=== PATIENT | male | born 1955 | race Caucasian/White ===

== ENCOUNTER 2025-08-11 21:33 | Emergency (ER) | payer MEDICARE ==
[2025-08-11 22:27] LABS: BASOPHILS ABSOLUTE AUTO 0.05 K/uL (0.00-0.10); BASOPHILS PERCENT AUTO 0.5 % (0.1-1.3); EOSINOPHILS ABSOLUTE AUTO 0.15 K/uL (0.00-0.40); EOSINOPHILS PERCENT AUTO 1.4 % (0.0-5.4); IMMATURE GRAN ABSOLUTE AUTO 0.04 K/uL (0.00-0.23); IMMATURE GRAN PERCENT AUTO 0.4 % (0.0-0.7); LYMPHOCYTES ABSOLUTE AUTO 2.47 K/uL (0.8-3.3); LYMPHOCYTES PERCENT AUTO 23.4 % (11.4-47.7); MONOCYTES ABSOLUTE AUTO 0.77 K/uL (0.20-0.90); MONOCYTES PERCENT AUTO 7.3 % (3.3-12.6); NEUTROPHILS ABSOLUTE AUTO 7.06 K/uL (1.0-7.6); NEUTROPHILS PERCENT AUTO 67.0 % (40.0-78.1); PLATELET COUNT,PLT 199 K/uL (130-375); RED BLOOD CELL COUNT 4.08 M/uL (4.14-5.76); WHITE BLOOD CELL COUNT,WBC 10.5 K/uL (3.2-11.0)
[2025-08-11 22:44] LABS: INR 1.0
[2025-08-11 22:48] LABS: A/G RATIO 1.0 (1.2-2.2); ALANINE AMINOTRANSFERASE,ALT 27 U/L (12-78); ASPARTATE AMNIOTRANSFERASE,AST 42 U/L (15-37); BILIRUBIN TOTAL 0.5 mg/dL (0.2-1.0); BLOOD UREA NITROGEN,BUN 18 mg/dL (7-18); CARBON DIOXIDE,CO2 28 mmol/L (21-32); CHLORIDE,CL 107 mmol/L (100-108); CREATININE 1.1 mg/dL (0.8-1.3); EST CRCL DRUG DOSING (CG) 62.68 mL/min; ESTIMATED GFR 71 mL/min (>60); GLUCOSE RANDOM 102 mg/dL (74-106); POTASSIUM,K 4.2 mmol/L (3.6-5.2); PROTEIN TOTAL,TP 7.0 g/dL (6.4-8.2); SODIUM,NA 142 mmol/L (140-148)
[2025-08-12 00:11] LABS: BASOPHILS ABSOLUTE AUTO 0.04 K/uL (0.00-0.10); BASOPHILS PERCENT AUTO 0.4 % (0.1-1.3); EOSINOPHILS ABSOLUTE AUTO 0.17 K/uL (0.00-0.40); EOSINOPHILS PERCENT AUTO 1.7 % (0.0-5.4); IMMATURE GRAN ABSOLUTE AUTO 0.04 K/uL (0.00-0.23); IMMATURE GRAN PERCENT AUTO 0.4 % (0.0-0.7); LYMPHOCYTES ABSOLUTE AUTO 2.67 K/uL (0.8-3.3); LYMPHOCYTES PERCENT AUTO 26.9 % (11.4-47.7); MONOCYTES ABSOLUTE AUTO 0.76 K/uL (0.20-0.90); MONOCYTES PERCENT AUTO 7.7 % (3.3-12.6); NEUTROPHILS ABSOLUTE AUTO 6.24 K/uL (1.0-7.6); NEUTROPHILS PERCENT AUTO 62.9 % (40.0-78.1); PLATELET COUNT,PLT 190 K/uL (130-375); RED BLOOD CELL COUNT 3.78 M/uL (4.14-5.76); WHITE BLOOD CELL COUNT,WBC 9.9 K/uL (3.2-11.0)
== END 2025-08-12 00:30 | disposition home or self-care (01) ==
LOC: JP.ED 21:33
DX: K62.5 Hemorrhage of anus and rectum (principal)
CPT/HCPCS: 36415; 80053; 85025; 85610; 99283